=== PATIENT | male | born 1955 | race Caucasian/White ===

== ENCOUNTER 2023-06-18 08:27 | Day surgery (SDC) | payer OTHER ==
[2023-06-11 14:45] VITALS: BMI 30.8
[2023-06-18 08:41] VITALS: RESP 18; TEMP 97.6
[2023-06-18 10:15] VITALS: PULSE 83
[2023-06-18 10:32] VITALS: BP 129/67
== END 2023-06-18 10:45 | disposition home or self-care (01) ==
LOC: FASU-ENDO 08:27
PROVIDERS: ATTEND Internal Medicine Gastroenterology
PROC: 0DBN8ZX Excision of Sigmoid Colon, Via Natural or Artificial Opening Endoscopic, Diagnostic (ICD-10-PCS; principal; 2023-06-18 09:27)
DX: Z12.11 Encounter for screening for malignant neoplasm of colon (principal); K63.5 Polyp of colon; K57.30 Diverticulosis of large intestine without perforation or abscess without bleeding; K64.1 Second degree hemorrhoids
CPT/HCPCS: 82962; 88305-TC